=== PATIENT | female | born 2000 | race Caucasian/White ===

== ENCOUNTER 2024-11-14 17:54 | Emergency (ER) | payer MEDICAID ==
[~2024-11-14] VITALS: Ht 165.1 cm; Wt 95.5 kg
[2024-11-14 18:06] LABS: COVID AG,FIA SOURCE NASAL SWAB
[2024-11-14 18:22] LABS: RAPID GROUP A STREP NEGATIVE (NEGATIVE)
[2024-11-14 18:35] LABS: INFLUENZA TYPE A NEGATIVE FOR TYPE A (NEGATIVE); INFLUENZA TYPE B NEGATIVE FOR TYPE B (NEGATIVE); SARS-COV2 (COVID) ANTIGEN,FIA Positive (Negative)
[2024-11-14] MEDS: IBUPROFEN 600 MG TABLET PO ONE (19:42)
[2024-11-14] MEDS: ONDANSETRON 4 MG TABLET PO ONE (19:43)
[2024-11-14] MEDS: AMOX TR/POT CLAV 875 MG/125 MG TABLET PO ONE (19:43)
[2024-11-14] MEDS ORDERED: AMOX-457 PO (20:17)
[2024-11-14] MEDS ORDERED: IBUP-1492 PO (20:17)
[2024-11-14] MEDS ORDERED: ACET-3385 PO (20:17)
[2024-11-14] MEDS ORDERED: ONDA-104 PO (20:17)
[2024-11-14 21:20] VITALS: BP 117/81; PULSE 105; RESP 16; TEMP 99.7; O2SAT 100
== END 2024-11-14 21:41 | disposition home or self-care (01) ==
LOC: EMS 18:00
DX: U07.1 COVID-19 (principal); H66.91 Otitis media, unspecified, right ear
CPT/HCPCS: 99284; 87426; 87430; 87804; Q0162